=== PATIENT | male | born 1950 | race Caucasian/White ===

== ENCOUNTER 2016-08-31 09:18 | Emergency (ER) | payer BC, OTHER ==
[2016-08-31 09:44] VITALS: BMI 25.8
--- NOTE | 2016-08-31 10:34 | PDOC ---
History of Present Illness <Dmitry Klein - Last Filed: 08/31/16 15:27> - General History Source: Patient Exam Limitations: No Limitations <Lilian Elliott - Last Filed: 08/31/16 19:04> - General Chief Complaint: Nausea Stated Complaint: DISCOMFORT UNDER RIGHT ARM/NAUSEAU Time Seen by Provider: 08/31/16 09:33 - History of Present Illness Initial Comments: 08/31/16 19:04 The patient is a 65 year old male with a significant past medical history of neck arthritis, and hypercholesterolemia (diet controlled), presenting to the Emergency Department with intermittent pain under his right armpit since last night. The patient reports that last night around 11pm he experienced sharp intermittent, nonradiating, pains under his right armpit that lasted about 1 minute. He admits that he then fell asleep, but was woken from sleep at about 7am with the same pain. He admits to nausea with the pain this morning, and felt almost diaphoretic ("but not quite"). He reports taking 2 full strength aspirin this morning. He reports that he did eat pizza last night, though he has never experienced this type of pain before. He also admits to a pinched nerve in left arm a couple years ago, arthritis in neck. The patient states that his last stress test was 15 years ago. The patient denies chest pain, palpitations, and shortness of breath. Patient denies vomiting, or diarrhea. Patient denies fever, chills, and cough. Patient denies back pain. Patient denies numbness or tingling to the extremities. Patient denies headache, or dizziness. Allergy: penicillins PCP: Dr. Mckeon (Lilian Elliott) Past History - Past Medical History Hypercholesterolemia: Yes - Psycho/Social/Smoking Cessation Hx Anxiety: No Suicidal Ideation: No Smoking History: Never smoked Have you smoked in the past 12 months: No Information on smoking cessation initiated: No Hx Alcohol Use: No Drug/Substance Use Hx: No Substance Use Type: None <Dmitry Klein - Last Filed: 08/31/16 15:27> <Lilian Elliott - Last Filed: 08/31/16 19:04> - Past Medical History Allergies/Adverse Reactions: Allergies Allergy/AdvReac Type Severity Reaction Status Date / Time Penicillins Allergy Unknown Verified 08/31/16 09:44 Home Medications: Ambulatory Orders Aspirin [ASA -] 81 mg PO DAILY 04/09/13 Multivitamins [Multivit ([facility] Formul[facility])] 1 tab PO DAILY 05/03/14 Review of Systems <Dmitry Klein - Last Filed: 08/31/16 15:27> - Review of Systems Able to Perform ROS?: Yes <Lilian Elliott - Last Filed: 08/31/16 19:04> - Review of Systems Comments:: 08/31/16 19:04 CONSTITUTIONAL: No reported: Fever, Chills, Diaphoresis, Generalized Weakness, Malaise, Loss of Appetite HEENT: No reported: Rhinorrhea, Nasal Congestion, Throat Pain, Throat Swelling, Difficulty Swallowing, Mouth Swelling, Ear Pain, Eye Pain, Visual Changes CARDIOVASCULAR: No reported: Chest Pain, Syncope, Palpitations, Irregular Heart Rate, Lightheadedness, Peripheral Edema RESPIRATORY: No reported: Cough, Shortness of Breath, SOB with Exertion, Orthopnea, Wheezing , Stridor, Hemoptysis GASTROINTESTINAL: No reported: Abdominal pain, Abdominal Distension, Nausea, Vomiting, Diarrhea, Constipation, Melena, Hematochezia GENITOURINARY: No reported: Dysuria, Frequency, Urgency, Hesitancy, Flank Pain, Genital Pain MUSCULOSKELETAL: Reported: + episodes of pain under the right armpit No reported: Myalgia, Arthralgia, Joint Swelling, Back pain, Neck Pain SKIN: No reported: Rash, Itching, Pallor HEMATOLOGIC/IMMUNOLOGIC: No reported: Easy Bleeding, Easy Bruising, Lymphadenopathy, Frequent infections ENDOCRINE: No reported: Unexplained Weight Gain, Unexplained Weight Loss, Heat Intolerance , Cold Intolerance NEUROLOGIC: No reported: Headache, Focal Weakness, Paresthesias, Vertigo, Lightheadedness, Unsteady Gait, Seizure, Mental Status Changes, Incontinence PSYCHIATRIC: No reported: Anxiety, Depression (Lilian Elliott) *Physical Exam <Dmitry Klein - Last Filed: 08/31/16 15:27> <Lilian Elliott - Last Filed: 08/31/16 19:04> - Vital Signs Last Vital Signs Temp Pulse Resp BP Pulse Ox 98.1 F 68 16 122/77 99 08/31/16 14:46 08/31/16 14:46 08/31/16 14:46 08/31/16 14:46 08/31/16 14:46 - Physical Exam Comments: 08/31/16 19:04 GENERAL: The patient is awake, alert, and fully oriented, Nontoxic - in no acute distress. HEAD: Normocephalic, atraumatic. EYES: extraocular movements intact, sclera anicteric, conjunctiva clear. ENT: Normal voice, Moist mucous membranes. NECK: Normal range of motion, No JVD LUNGS: Breath sounds equal, clear to auscultation bilaterally. No wheezes, no rhonchi, no rales. HEART: Regular rate and rhythm, normal S1 and S2 without murmur, rub or gallop. ABDOMEN: Soft, nontender, normoactive bowel sounds. No guarding, no rebound. No masses. No CVA tenderness EXTREMITIES: Normal range of motion, no edema. No clubbing or cyanosis. No cords , erythema, or tenderness. NEUROLOGICAL: No facial asymmetry, Normal speech, normal gait. PSYCH: Normal mood, normal affect. SKIN: Warm, Dry, normal turgor. (Lilian Elliott) Heart Score/ECG Review <Dmitry Klein - Last Filed: 08/31/16 15:27> <Lilian Elliott - Last Filed: 08/31/16 19:04> - ECG Impressions Comment:: 08/31/16 11:16 Twelve-lead EKG was performed and reviewed by me. There is normal sinus rhythm with a normal rate. Rate of 73 Left axis deviation The intervals are normal. There is normal R wave progression There are no ST or T wave abnormalities. (Dmitry Klein) ED Treatment Course - LABORATORY CBC & Chemistry Diagram: 08/31/16 11:04 08/31/16 11:04 <Dmitry Klein - Last Filed: 08/31/16 15:27> - LABORATORY CBC & Chemistry Diagram: 08/31/16 11:04 08/31/16 11:04 <Lilian Elliott - Last Filed: 08/31/16 19:04> - ADDITIONAL ORDERS Additional order review: Laboratory Results 08/31/16 08/31/16 14:15 11:04 Sodium 143 Potassium 4.2 Chloride 103 Carbon Dioxide 32 Anion Gap 8 BUN 31 H D Creatinine 1.2 Creat Clearance w eGFR > 60 Random Glucose 99 Calcium 9.4 Total Bilirubin 1.2 H AST 18 ALT 28 Alkaline Phosphatase 73 Creatine Kinase 67 76 Troponin I < 0.02 < 0.02 Total Protein 7.5 Albumin 4.3 08/31/16 11:04 RBC 5.20 MCV 91.9 MCHC 33.3 RDW 13.7 MPV 8.8 Neutrophils % 84.7 H Lymphocytes % 10.9 Monocytes % 3.7 L Eosinophils % 0.4 Basophils % 0.3 Medical Decision Making <Dmitry Klein - Last Filed: 08/31/16 15:27> <Lilian Elliott - Last Filed: 08/31/16 19:04> - Medical Decision Making 08/31/16 11:11 65y M hx of hl presents with 2 wpisodes of R sided chest pain under his R arm, lasting under a minute once last night and again this morning aroun d7:30, the one this morning was followed by a brief episode of nausea/diaphoresis for about a minute. Pt otherwise randa any recent sob/rutledge. worsening of symtoms on exertion, (walks 2 miles daily). pt currently asymptomatic with unremarkable exam ?indigestion vs. acs sypmtoms are highly atypical for acs will ck trops x 2 (now and 6 hrs after last episode of discomfort) pt s/p ASA this AM A portion of this note was documented by scribe services under my direction. I have reviewed the details of the note, within reason, and agree with the documentation with the following case summary and management plan written by me 08/31/16 15:25 trop neg x 2 pt asymptomatic now will dc with pmd fu return precautions were discussed I discussed the physical exam findings, ancillary test results and final diagnoses with the patient. I answered all of the patient's questions. The patient was satisfied with the care received and felt comfortable with the discharge plan and treatment plan. The patient will call their primary care physician within 24 hours to arrange follow-up and will return to the Emergency Department with any new, persistent or worsening symptoms. (Dmitry Klein) *DC/Admit/Observation/Transfer - Discharge Dispostion Admit: No <Dmitry Klein - Last Filed: 08/31/16 15:27> <Lilian Elliott - Last Filed: 08/31/16 19:04> Diagnosis at time of Disposition: Chest pain Qualifiers: Chest pain type: unspecified Qualified Code(s): R07.9 - Chest pain, unspecified - Discharge Dispostion Disposition: HOME Condition at time of disposition: Improved - Referrals Referrals: Tang Mckeon MD [Primary Care Provider] - - Patient Instructions Printed Discharge Instructions: DI for Chest Pain Additional Instructions: Return to the emergency department immediately with ANY new, persistent or worsening symptoms. You MUST call and follow up with your doctor tomorrow for further evaluation of your symptoms. Results were discussed with you. Please make sure your doctor reviews the results of your emergency evaluation. If you had any xrays during your visit, it was read preliminarily by myself, a Radiologist will review it and if there are any additional findings we will call you. Print Language: ALGERIAN - Attestations Scribe Attestion: 08/31/16 19:04 Documentation prepared by Lilian Elliott, acting as biomedical equipment specialist for Dmitry Klein MD. (Lilian Elliott)
[2016-08-31 11:44] LABS: BASOPHIL 0.3 % (0-2.0); EOSINOPHIL 0.4 % (0-4.5); MCH 30.6 pg (25.7-33.7); MCHC 33.3 g/dl (32.0-35.9); MEAN CELL VOLUME 91.9 fl (80-96); MEAN PLT VOLUME 8.8 fl (7.5-11.1); NEUTROPHILS 84.7 % (42.8-82.8); PLATELET COUNT 172 K/MM3 (134-434); RDW 13.7 % (11.9-15.9); WHITE BLOOD COUNT 10.8 K/mm3 (4.0-10.0)
[2016-08-31 12:11] LABS: ALBUMIN 4.3 g/dl (3.4-5.0); ANION GAP 8 (8-16); BILIRUBIN,TOTAL 1.2 mg/dL (0.2-1.0); CALCIUM 9.4 mg/dL (8.5-10.1); CO2 32 mmol/L (21-32); COCKROFT - GAULT 63.83; CREATININE 1.2 mg/dL (0.7-1.3); GLUCOSE,RANDOM 99 mg/dL (74-106); SGOT/AST 18 U/L (15-37); SGPT/ALT 28 U/L (12-78); TOT PROT 7.5 g/dl (6.4-8.2)
[2016-08-31 12:13] LABS: ALK PHOS 73 U/L (45-117); TROPONIN I < 0.02 ng/ml (0.00-0.05)
[2016-08-31 14:47] VITALS: BP 122/77; PULSE 68; TEMP 98.1
[2016-08-31 15:08] LABS: TROPONIN I < 0.02 ng/ml (0.00-0.05)
--- NOTE | 2016-08-31 16:14 | EKG ---
Test Reason : Blood Pressure : / mmHG Vent. Rate : 073 BPM Atrial Rate : 073 BPM P-R Int : 168 ms QRS Dur : 094 ms QT Int : 378 ms P-R-T Axes : 058 -32 031 degrees QTc Int : 416 ms NORMAL SINUS RHYTHM LEFT AXIS DEVIATION ABNORMAL ECG WHEN COMPARED WITH ECG OF 09-APR-2013 13:07, NO SIGNIFICANT CHANGE WAS FOUND Confirmed by LAMBERT STARR MD ([id number]) on 08/31/2016 4:13:43 PM Referred By: Confirmed By:LAMBERT STARR MD
== END 2016-08-31 15:43 | disposition home or self-care (01) ==
LOC: JER 09:18
DX: R07.9 Chest pain, unspecified (principal); M46.82 Other specified inflammatory spondylopathies, cervical region; E78.00 Pure hypercholesterolemia, unspecified
CPT/HCPCS: 36415; 80053; 82550; 84484; 85025; 93005; 93010; 99284-25